=== PATIENT | female | born 1945 | race African-American/Black ===

== ENCOUNTER → 2016-11-06 | Outpatient (CLI) | payer MEDICARE, BC ==
[~2016-11-06] MED LIST: ACET650T89 PO; ALEN70TA5 PO; AMLO10TA2 PO; ATEN50TA PO; CALC625T20 PO; CLON0.2T PO; FERR-26 PO; GLUC100018 PO; IBUP200T58 PO; MULT1TAB52 PO; NAPR220T70 PO; SPIR25TA3 PO
[2016-11-06 09:26] LABS: BASO # 0.1 x10^3/uL (0.0-0.2); BASO % 1 % (0-3); EOS % 2 % (0-3); HEMATOCRIT 37.6 % (36.0-47.0); HEMOGLOBIN 12.7 g/dL (12.0-15.5); LYMPH # 2.5 x10^3/uL (1.0-4.8); LYMPH % 30 % (24-48); MEAN CORPUSCULAR HEMOGLOBIN 32 pg (25-35); MEAN CORPUSCULAR HGB CONC 34 g/dL (31-37); MEAN CORPUSCULAR VOLUME 93 fL (79-100); MONO % 8 % (0-9); NEUT % 59 % (31-73); PLATELET COUNT 210 x10^3/uL (140-400); RED BLOOD COUNT 4.03 x10^6/uL (3.50-5.40); RED CELL DISTRIBUTION WIDTH 13.2 % (11.5-14.5); WHITE BLOOD COUNT 8.4 x10^3/uL (4.0-11.0)
[2016-11-06 09:34] LABS: CALCIUM 9.4 mg/dL (8.5-10.1); CREATININE 0.8 mg/dL (0.6-1.0); GFR 86.1; POTASSIUM 3.9 mmol/L (3.5-5.1)
[2016-11-06 09:41] LABS: PROTHROMBIN TIME PATIENT 12.5 SEC (11.7-14.0)
[2016-11-06 09:55] LABS: BILIRUBIN,URINE NEGATIVE (NEG); GLUCOSE,URINE NEGATIVE (NEG); NITRITE,URINE NEGATIVE (NEG); PROTEIN,URINE NEGATIVE (NEG-TRACE); UROBILINOGEN,URINE 0.2 mg/dL (0.2 mg/dL)
[2016-11-06 10:13] LABS: BACTERIA,URINE 0 /HPF (0-FEW); RBC,URINE 0 /HPF (0-2); SQUAMOUS EPITHELIAL CELL,UR FEW /LPF; WBC,URINE 0 /HPF (0-4)
--- NOTE | 2016-11-06 13:42 | RAD ---
Indication preop. Anticipated knee replacement. PA and lateral views of the chest were obtained. No prior imaging is available. Heart size is normal. Minimally tortuous thoracic aorta is noted. There is no acute parenchymal infiltrate. Significant pleural fluid is not seen. There is no pneumothorax. IMPRESSION: No acute or focal process is seen in the chest
== END | disposition home or self-care (01) ==
LOC: SURGPAT 14:05
PROVIDERS: ATTEND Orthopaedic Surgery
DX: Z01.818 Encounter for other preprocedural examination (principal); I10 Essential (primary) hypertension
CPT/HCPCS: 36415; 71020; 80048; 81001; 82040; 85027; 85610; 85730; 87641

== ENCOUNTER 2016-11-21 08:29 | Inpatient (IN) | payer MEDICARE, BC ==
--- NOTE | 2016-11-20 11:00 | PDOC1 ---
History and Physical Date of Admission Date of Admission DATE: 11/21/16 Identification/Chief Complaint Chief Complaint bilateral knee osteoarthritis pain Problems: Source Source: Chart review History of Present Illness History of Present Illness The patient is a 71 year old female with a history of bilateral primary osteoarthritis who has continued right knee pain. She was last seen in the clinic on 06/26/16 for bilateral knee pain. She received 80mg Depo-Medrol into both knees and states the injection worked really well on her left knee but her right knee is worse. She had a tooth extracted last week however is not on any antibiotics at this time. She states she will wait to get the crown and bridge after the knee surgery. She denies history of diabetes and peripheral neuropathy however does have some numbness to the top of her foot at night only. She does have arthritis in her lower back. She denies history of blood clots. Past Medical History Cardiovascular: HTN Musculoskeletal: Osteoarthritis Past Surgical History Past Surgical History: Breast Biopsy, Other (shoulder mass biopsy) Family History Family History: Cancer, Heart Disease, Hypertension Social History Smoke: No ALCOHOL: none Drugs: None Current Medications Current Medications Active Scripts Active Reported Spironolactone 25 Mg Tablet 25 Mg PO DAILY Alendronate Sodium 70 Mg Tablet 70 Mg PO WEEKLY Ferrous Sulfate 325 Mg Tablet 1 Tab PO DAILY Fiber Tabs (Calcium Polycarbophil) 625 Mg Tablet 625 Mg PO DAILY Multivitamins (Multivitamin) 1 Each Tablet 1 Tab PO DAILY Glucosamine (Glucosamine Sulfate 2KCL) 1,000 Mg Tablet 1,000 Mg PO DAILY Arthritis Pain (Acetaminophen) 650 Mg Tablet.er 650 Mg PO Advil (Ibuprofen) 200 Mg Tablet 200 Mg PO Aleve (Naproxen Sodium) 220 Mg Tablet 220 Mg PO BID Amlodipine Besylate 10 Mg Tablet 10 Mg PO DAILY Clonidine Hcl 0.2 Mg Tablet 1 Tab PO QHS Atenolol 50 Mg Tablet 50 Mg PO BID Allergies Allergies: Coded Allergies: No Known Drug Allergies (Unverified , 11/02/16) Physical Exam General: Alert, Oriented X3, Cooperative, No acute distress HEENT: Atraumatic, EOMI Lungs: Normal air movement Heart: RRR Abdomen: Soft Extremities: No clubbing, No cyanosis, Normal pulses, Other (LEFT KNEE: shows her mildly antalgic gait. There is valgus alignment. No masses. No detectable effusion. Tenderness on the joint lines. Range of motion is 5-115 degrees. There is crepitus with range of motion, and pain at the extremes of motion. The knee is stable to varus and valgus stress without subluxation or laxity. Muscle strength is normal (5/5) for quadriceps and hamstrings, and muscle tone is normal. The skin is normal with no scars, rashes, lesions or ulcers. Light touch sensation is intact. No edema and no varicosities. Dorsalis pedis pulse is intact and capillary refill is normal. RIGHT KNEE: shows her mildly antalgic gait. There is valgus alignment. No masses. No detectable effusion. Tenderness on the joint lines. Range of motion is 5-100 degrees. There is crepitus with range of motion, and pain at the extremes of motion. The knee is stable to varus and valgus stress without subluxation or laxity. Muscle strength is normal (5/5) for quadriceps and hamstrings, and muscle tone is normal. The skin is normal with no scars, rashes, lesions or ulcers. Light touch sensation is intact. Trace edema. Some varicose veins. Dorsalis pedis pulse is intact and capillary refill is normal.) Skin: No rashes, No breakdown, No significant lesion Neuro: Normal speech, Sensation intact Images Images IMAGING REPORT Joint survey, hips knees and ankles Clinical information: Preoperative for total knee arthroplasty Comparison: none Findings Bones: The angle between the right hip-ankle mechanical axis and the femoral shaft is 5. The angle between the left hip-ankle mechanical axis and the femoral shaft is 5 . The mechanical axis crosses lateral to the center of the right knee indicating valgus alignment. The mechanical axis crosses in the center of the left knee indicating proper mechanical alignment. Joints: There is narrowing of the right knee joint laterally. The left knee joint appears normal. The hips and ankles show minimal degenerative changes most prominent in the left hip where there is mild osteoarthritis. Soft tissue: Normal. Impression: Valgus alignment of the right knee. The difference between the mechanical axis and femoral shaft anatomic axis is 5 bilaterally. VTE Prophylaxis Ordered VTE Prophylaxis Devices: Yes VTE Pharmacological Prophylaxi: Yes Assessment/Plan Assessment/Plan Bilateral knee osteoarthritis. The patient and Dr. Rocha discussed the potential risks of infection, neurovascular injury, bleeding, blood clots, need for revision surgery, or other potential surgical or anesthetic complications. We can just inject her left knee today. We can also inject the left knee at the time of surgery. We will proceed with a right total knee arthroplasty on November 21, 2016. She had some dental work done, but is getting that cleared up before surgery. BEAR MADERA Nov 20, 2016 11:00
[2016-11-21] VITALS (8 sets, daily range): BP systolic 118–129; BP diastolic 70–79
[~2016-11-21] VITALS: Ht 171.4 cm; Wt 100.2 kg
[~2016-11-21 08:29] MED LIST changes: +CELECOXIB 200 MG CAPSULE. PO PRN; +HYDROcodone/APAP 7.5/325MG 1 TAB TABLET PO PRN; +HYDROmorphone 2 MG/ML VIAL IV PRN; +IV RINGERS,LACTATED 1000ML 1,000 ML IV SCH; +LIDOCAINE 1% 1 ML SYRINGE. ID PRN; +MORPHINE SULFATE 2 MG/ML DISP.SYRIN. IV PRN; +MORPHINE SULFATE 5 MG, KETOROLAC TROMETHAMINE 30 MG, ROPIVacaine 0.5% PF 60 ML, EPINEPH... INT ART ONE; +ONDANSETRON PF 4 MG/2 ML VIAL. IV PRN; +PROCHLORPERAZINE 10 MG/2 ML VIAL. IV PRN; +TRANEXAMIC ACID 1,000 MG in IV NS 50ML -- 1ST BAG INJ ONE; +TRANEXAMIC ACID 1,000 MG in IV NS 50ML -- 2ND BAG INJ ONE; +fentaNYL PF VIAL 100 MCG/2 ML VIAL IV PRN
[2016-11-21] MEDS ORDERED: TOBRAMYCIN POWDER 1.2 GM VIAL. ONE (08:45)
[2016-11-21] MEDS ORDERED: VANCOMYCIN 1 GM VIAL. ONE (08:45)
[2016-11-21] MEDS ORDERED: MELO15TA23 PO (09:24)
[2016-11-21] MEDS ORDERED: methylPREDNISolone ACETATE 80 MG/ML VIAL. ONE (09:42)
[2016-11-21] MEDS ORDERED: BUPIVACAINE MPF 0.25% 30 ML VIAL. ONE (09:42)
[2016-11-21] MEDS ORDERED: ePHEDrine PF IN SALINE 50 MG/5 ML DISP.SYRIN IV ONE (10:54)
[2016-11-21] MEDS ORDERED: fentaNYL PF VIAL 100 MCG/2 ML VIAL ONE ×2 (11:10→11:24)
[2016-11-21] MEDS ORDERED: SEVOFLURANE > 120 MINUTES. IH ONE (11:21)
[2016-11-21] MEDS ORDERED: LIDOCAINE 2% TOPICAL JELLY 5GM TUBE. TP ONE (11:22)
[2016-11-21] MEDS ORDERED: PROPOFOL 20 ML IV ONE (11:22)
[2016-11-21] MEDS ORDERED: DEXAMETHASONE SOD PHOS 20 MG/5 ML VIAL. ONE (11:22)
[2016-11-21] MEDS ORDERED: ONDANSETRON PF 4 MG/2 ML VIAL. ONE (11:22)
[2016-11-21] MEDS: fentaNYL PF VIAL 100 MCG/2 ML VIAL IV PRN ×3 (13:13→13:41)
[2016-11-21] MEDS ORDERED: PROCHLORPERAZINE 10 MG/2 ML VIAL. IV PRN (13:15)
[2016-11-21] MEDS ORDERED: CALCIUM CARBONATE 500 MG TAB.CHEW PO PRN (13:15)
[2016-11-21] MEDS ORDERED: traMADol 50 MG TABLET PO PRN ×2 (13:15)
[2016-11-21] MEDS ORDERED: oxyCODONE/APAP 5/325 1 TAB TABLET PO PRN (13:15)
[2016-11-21] MEDS ORDERED: MORPHINE SULFATE 10 MG/ML VIAL. IV PRN (13:15)
[2016-11-21] MEDS ORDERED: HYDROcodone/APAP 10/325 1 TAB TABLET PO PRN (13:15)
[2016-11-21] MEDS ORDERED: MORPHINE SULFATE 2 MG/ML DISP.SYRIN. IV PRN (13:15)
[2016-11-21] MEDS ORDERED: HYDROcodone/APAP 7.5/325MG 1 TAB TABLET PO PRN (13:15)
[2016-11-21] MEDS ORDERED: ACETAMINOPHEN 325 MG TABLET. PO PRN (13:15)
[2016-11-21] MEDS ORDERED: 0.9 % SODIUM CHLORIDE 10 ML DISP.SYRIN. IV PRN (13:15)
[2016-11-21] MEDS ORDERED: diphenhydrAMINE 50 MG/ML VIAL IV PRN (13:15)
[2016-11-21] MEDS ORDERED: ZOLPIDEM 5 MG TABLET. PO PRN (13:15)
[2016-11-21] MEDS ORDERED: DEXTROSE 50% 25 GM / 50ML DISP.SYRIN. IV PRN (13:15)
[2016-11-21] MEDS ORDERED: METOCLOPRAMIDE HCL 10 MG/2 ML VIAL. IV PRN (13:15)
[2016-11-21] MEDS ORDERED: MORPHINE SULFATE 4 MG/ML DISP.SYRIN. IV PRN ×2 (13:15)
[2016-11-21] MEDS ORDERED: fentaNYL PF VIAL 100 MCG/2 ML VIAL IV PRN ×2 (13:15)
[2016-11-21] MEDS ORDERED: PROCHLORPERAZINE 5 MG TABLET. PO PRN (13:15)
--- NOTE | 2016-11-21 13:56 | RAD ---
Right knee, 2 views, 11/21/2016: History: Postop knee replacement A total knee prosthesis is in place in satisfactory position. A surgical drain overlies the operative site anteriorly. There is no evidence of a retained surgical instrument, needle or radiopaque sponge. IMPRESSION: No significant postoperative abnormality is detected.
[2016-11-21] MEDS: SPIRONOLACTONE 25 MG TABLET PO SCH (14:00)
[2016-11-21] MEDS: CALCIUM POLYCARBOPHIL 625 MG TABLET PO SCH (14:00)
[2016-11-21] MEDS: SENNOSIDES/DOCUSATE 8.6/50MG TABLET. PO SCH (14:00)
[2016-11-21] MEDS: MULTIVITAMIN with MINERAL TABLET. PO SCH (14:00)
[2016-11-21] MEDS: amLODIPine BESYLATE 10 MG TABLET PO SCH (14:00)
[2016-11-21] MEDS: MELOXICAM 7.5 MG TABLET PO SCH (14:00)
--- NOTE | 2016-11-21 15:05 | PDOC4 ---
Operative Note Operative Note Date of Procedure: November 21, 2016 Pre-Op Diagnosis: Osteoarthritis right knee (and left knee) Post-Op Diagnosis: Osteoarthritis right knee (and left knee) Procedure: right total knee arthroplasty (and left knee corticosteroid injection) Surgeon: Jose Enrique Rocha MD Hardboard Grinder: Shaylee Foster PA-C Anesthesia: General EBL: 100 mL Specimens Obtained: right knee bone and soft tissue Complications: none Implant Company: [employer] Drains: Hemovac plus pain catheter Tourniquet time: 64 Minutes Tourniquet Pressure: 350 mm Hg Indications for Procedure: Arthritis pain unrelieved by nonoperative management. Findings: Severe osteoarthritis with bone on bone contact laterally and at the patellofemoral compartment. Implants used: Size 5 right bicruciate stabilized Journey II BCS cobalt chrome femoral component, size 5 right Journey nonporous tibial baseplate, size 5-6 9 mm right Journey II BCS XLPE articular insert, 35 mm oval Abby II resurfacing patellar component Procedure in Detail: The patient was identified in the preoperative holding area, and the correct right extremity was marked by me. The patient was taken to the operating room where the patient was anesthetized by the Department of Anesthesia. Preoperative antibiotics were given intravenously. Tranexamic acid 1 g was given intravenously for intraoperative hemostasis. A "time-out" procedure was performed. The patient was positioned supine on the operative table with a tourniquet on the upper right thigh. The left knee was prepared for injection with topical betadine, and then the knee was injected with 80 mg of DepoMedrol and 1 mL of 0.25% bupivacaine, using sterile technique. A Band-Aid was placed. The right lower limb was thoroughly prepped and draped in sterile fashion. An impervious stockinet and adhesive drape were used such that the skin was entirely covered. An Gonzalez leg galaviz was used. The operating team wore personal exhaust-ventilated hoods. The tourniquet was inflated to 350 mm Hg. A midline skin incision was made with a scalpel using the patella and tibial tubercle as landmarks. Electrocautery was used for hemostasis. My human services assistant used rake retractors. A medial parapatellar arthrotomy incision was used with extension into the distal quadriceps tendon. The patella was retracted laterally and Hohmann retractors were now used by my human services assistant. Excess synovium, the menisci, and the cruciate ligaments were resected sharply. The patella was assessed and excess synovium and osteophytes around the patellar articulation were removed. The patella was measured with a caliper, cut freehand with a saw using caliper measurements, sized, and then drilled for an oval three-pegged patella component. Periarticular injection was used in the suprapatellar pouch and distal quadriceps muscle. Whitesides's line was assessed on the femur. An intra-medullary 5 degree cutting guide was pinned to the femur, and a distal femoral cut was made with an oscillating saw. An additional 4 mm resection was used due to the deep femoral sulcus, and deficient femoral condyle.My human services assistant held Hohmann retractors and an [facility] retractor to protect the medial and lateral collateral ligaments, the patellar tendon, the skin and the other soft tissues. An anterior referencing guide was applied with external rotation of 6 to match Whitesides line. A 5-in-1 Journey II cutting guide was then applied and pinned to the femur. The posterior, anterior, and all chamfer cuts were made with the oscillating saw. An extramedullary guide was pinned to the tibia and rotational alignment and the planned resection thickness assessed. An external alignment abby was used to verify the planned cut in the varus-valgus plane and regarding posterior slope referencing the tibial tubercle, the tibial shaft, the ankle joint, and the second metatarsal. The upper tibia was cut made with an oscillating saw. My human services assistant held Hohmann retractors and a posterior cruciate ligament retractor to protect the medial and lateral collateral ligaments, the patellar tendon, the skin, the peroneal nerve and the other soft tissues. The upper tibia was sized with a trial baseplate. The posterior compartment was cleared of osteophytes and loose bodies, and posterior capsule released. Donna-articular injection was used in the posterior compartment. The box cut for a posterior stabilized component was made. A preliminary reduction was performed with a trial femur, trial tibial baseplate and trial polyethylene. Soft-tissue balancing was now performed, and extension and rotation of the alignments was checked using a guide abby in the tibial trial and a guide pin in the femur. No additional releases were required. The stability was assessed using different thicknesses of tibial articular surface to find satisfactory stability and good range of motion. The rotation of the tibial component was marked on the upper tibia. Final trial reduction was now performed verifying patella tracking and tibiofemoral stability and alignment. The tibia preparation was completed with a drill, saw, and fin punch at the previously noted rotation. The final implants were verified and opened. Outer gloves were changed by the operating team. The bone cuts were washed thoroughly with the [employer] InterPulse device and dried. Two packages of Palacos bone cement were mixed in powdered form with 1 gm of Vancomycin and 1.2 g tobramycin, then vacuum-mixed with the monomer, and placed into a cement gun. The cut surfaces of the bone were thoroughly dried with Lya-tip suction and with laparotomy sponges for cement interdigitation. The final components were cemented into place. The knee was kept at full extension while the cement hardened, and excess cement was removed. Tranexamic acid 1 g was redosed intravenously for additional intraoperative hemostasis. A final periarticular injection was used for pain relief. The tourniquet was released, and electrocautery was used for hemostasis. A final check of assec-oh-kcqhod and stability was made, and the polyethylene implant final size was chosen. The polyethylene implant was secured to the tibial baseplate, and the knee was reduced a final time. Thorough irrigation was used. Hemovac and pain catheter were used.The arthrotomy was closed with interrupted [id number] #1 PDS suture. The arthrotomy incision was then run with #1 STRATAFIX Symmetric PDS Plus Knotless suture. The subcutaneous tissues were closed with #2-0 Vicryl by my human services assistant. The skin was reapproximated with STRATAFIX Spiral MONOCRYL Plus Knotless suture by my human services assistant. The skin incision was then covered and reinforced with Dermabond Prineo mesh skin closure dressing. A bulky sterile gauze dressing was applied. Needle and sponge counts were correct. JOSE ENRIQUE ROCHA MD Nov 21, 2016 15:05
[2016-11-21] MEDS: oxyCODONE/APAP 7.5/325 1 TAB TABLET PO PRN ×2 (16:22→22:10)
[2016-11-21] MEDS: FERROUS SULFATE 325 MG TABLET. PO SCH (17:21)
[2016-11-21] MEDS: ASPIRIN ENTERIC COATED 325 MG TABLET.DR. PO SCH (20:34)
[2016-11-21] MEDS: ATENOLOL 50 MG TABLET. PO SCH (20:34)
[2016-11-21] MEDS: cloNIDine HCL 0.2 MG TABLET PO SCH (21:00)
[2016-11-21] MEDS: IV DEXTROSE 5 %-0.45 % NACL 1,000 ML IV SCH ×2 (22:09→23:05)
[2016-11-22 03:54] VITALS: BP 119/68
[2016-11-22] MEDS ORDERED: MAGNESIUM HYDROXIDE 2,400 MG/30 ML ORAL.SUSP. PO PRN (06:00)
[2016-11-22 06:03] LABS: HEMATOCRIT 28.7 % (36.0-47.0); HEMOGLOBIN 9.4 g/dL (12.0-15.5)
[2016-11-22 06:26] VITALS: BP 122/74
[2016-11-22] MEDS: SENNOSIDES/DOCUSATE 8.6/50MG TABLET. PO SCH (08:06)
[2016-11-22] MEDS: oxyCODONE/APAP 7.5/325 1 TAB TABLET PO PRN ×4 (08:06→21:16)
[2016-11-22] MEDS: FERROUS SULFATE 325 MG TABLET. PO SCH ×2 (08:06→16:53)
[2016-11-22] MEDS: MELOXICAM 7.5 MG TABLET PO SCH (08:07)
[2016-11-22] MEDS: CALCIUM POLYCARBOPHIL 625 MG TABLET PO SCH (08:07)
[2016-11-22] MEDS: ASPIRIN ENTERIC COATED 325 MG TABLET.DR. PO SCH ×2 (08:07→21:17)
[2016-11-22] MEDS: MULTIVITAMIN with MINERAL TABLET. PO SCH (08:07)
[2016-11-22] MEDS: SPIRONOLACTONE 25 MG TABLET PO SCH (09:00)
[2016-11-22] MEDS: ATENOLOL 50 MG TABLET. PO SCH ×2 (09:00→21:16)
[2016-11-22] MEDS: amLODIPine BESYLATE 10 MG TABLET PO SCH (09:00)
[2016-11-22] MEDS: IV DEXTROSE 5 %-0.45 % NACL 1,000 ML IV SCH ×2 (09:05→19:05)
--- NOTE | 2016-11-22 12:10 | PDOC ---
PROGRESS NOTES Subjective Subjective No complaints. Doing well. Objective Vital Signs Vital Signs Date Time Temp Pulse Resp B/P (MAP) Pulse Ox O2 Delivery O2 Flow Rate FiO2 11/22/16 08:06 Room Air 11/22/16 06:26 98.2 67 18 122/74 (90) 98 98.2 11/21/16 16:30 2.0 Physical Exam Dressing dry. Pain catheter and Hemovac in place. Good dorsiflexion and plantarflexion of the foot with no evidence of neurovascular injury or DVT. Calves are soft and non-tender. Negative Homans. Peripheral pulses and light touch sensation intact. Labs Laboratory Tests Test 11/21/16 09:25 11/22/16 05:15 Erythrocyte Sedimentation Rate 24 (0-25) Hemoglobin 9.4 g/dL (12.0-15.5) Hematocrit 28.7 % (36.0-47.0) Mean Corpuscular Hemoglobin Concent 33 g/dL (31-37) Laboratory Tests Test 11/22/16 05:15 Hemoglobin 9.4 g/dL (12.0-15.5) Hematocrit 28.7 % (36.0-47.0) Mean Corpuscular Hemoglobin Concent 33 g/dL (31-37) Imaging Postoperative x-rays reviewed by me, showing satisfactory total knee replacement , with no apparent complications. Assessment Assessment POD #1 TKA Problems: Plan Plan of Care Continue POC including DVT prophylaxis and physical therapy. BEAR MADERA Nov 22, 2016 12:10
[2016-11-22 12:41] VITALS: BP 117/74
[2016-11-22] MEDS ORDERED: BISACODYL 10 MG SUPP.RECT. PR PRN (16:00)
[2016-11-22 18:00] VITALS: BP 130/78
[2016-11-22] MEDS: cloNIDine HCL 0.2 MG TABLET PO SCH (21:00)
[2016-11-22 23:00] VITALS: BP 119/70
[2016-11-23] MEDS: oxyCODONE/APAP 7.5/325 1 TAB TABLET PO PRN ×5 (04:52→21:13)
[2016-11-23 05:14] LABS: HEMOGLOBIN 7.9 g/dL (12.0-15.5)
[2016-11-23 06:15] VITALS: BP 122/69
[2016-11-23] MEDS: ASPIRIN ENTERIC COATED 325 MG TABLET.DR. PO SCH ×2 (08:24→21:12)
[2016-11-23] MEDS: CALCIUM POLYCARBOPHIL 625 MG TABLET PO SCH (08:24)
[2016-11-23] MEDS: SENNOSIDES/DOCUSATE 8.6/50MG TABLET. PO SCH (08:24)
[2016-11-23] MEDS: FERROUS SULFATE 325 MG TABLET. PO SCH ×2 (08:25→17:00)
[2016-11-23] MEDS: MULTIVITAMIN with MINERAL TABLET. PO SCH (08:25)
[2016-11-23] MEDS: MELOXICAM 7.5 MG TABLET PO SCH (08:25)
[2016-11-23] MEDS: ATENOLOL 50 MG TABLET. PO SCH ×2 (08:32→21:12)
[2016-11-23 11:15] VITALS: BP 121/76
[2016-11-23] MEDS: SPIRONOLACTONE 25 MG TABLET PO SCH (11:51)
[2016-11-23] MEDS: amLODIPine BESYLATE 10 MG TABLET PO SCH (11:52)
--- NOTE | 2016-11-23 13:04 | PDOC ---
PROGRESS NOTES Subjective Subjective Doing well. Only reports mild pain increase from yesterday. Objective Vital Signs Vital Signs Date Time Temp Pulse Resp B/P (MAP) Pulse Ox O2 Delivery O2 Flow Rate FiO2 11/23/16 11:52 102 121/76 11/23/16 11:18 Room Air 11/23/16 11:15 99.1 18 95 99.1 11/22/16 20:00 2.0 Physical Exam Expected swelling. Pain catheter and drain have been removed. Incison with spotty drainage only onto Prineo. Calf soft and nontender. Negative homans sign. Good AROM ankle. Peripheral pulses and light touch sensation intact. Labs Laboratory Tests Test 11/22/16 05:15 11/23/16 04:30 Hemoglobin 9.4 g/dL (12.0-15.5) 7.9 g/dL (12.0-15.5) Hematocrit 28.7 % (36.0-47.0) 24.0 % (36.0-47.0) Mean Corpuscular Hemoglobin Concent 33 g/dL (31-37) 33 g/dL (31-37) Laboratory Tests Test 11/23/16 04:30 Hemoglobin 7.9 g/dL (12.0-15.5) Hematocrit 24.0 % (36.0-47.0) Mean Corpuscular Hemoglobin Concent 33 g/dL (31-37) Imaging X-rays independently reviewed by me and show satisfactory TKA alignment and no apparent complications. Assessment Assessment POD 2 TKA. Acute blood loss anemia, without apparent symptoms. Minimal tachycardia 102. Problems: Plan Plan of Care Continue DVT prophylaxis and physical therapy. No transfusion planned at this time. Will monitor for symptoms of anemia. Planned discharge tomorrow. Office F/U in 10-14 days. JOSE ENRIQUE SIBLEY MD Nov 23, 2016 13:04
--- NOTE | 2016-11-23 16:02 | PATHOLOGY ---
PATHOLOGY REPORT * * * * * * * * FINAL DIAGNOSIS: Segments of bone and soft tissue, right total knee arthroplasty: - Advanced degenerative arthritis. Comment: There is no evidence of an acute inflammatory process or malignancy.(JPM:; d/t: 11/23/16) REPORT ELECTRONICALLY SIGNED BY: Samuel Hoffman M.D. DATE/TIME: 11/23/2016 16:02 * * * * * * * * GROSS PATHOLOGY: Received in formalin labeled "Sindy Upton, right knee tissue," are multiple segments of bone, including tibial plateau, measuring 9.5 x 8.7 x 2.5 cm in aggregate dimensions admixed with soft tissue; meniscus is present. The specimen shows focal eburnation of the articular surfaces. Boom Crane Operator sections of bone and soft tissue are submitted in cassette A1, following decalcification. (CAA; 11/22/2016) INITIAL CPT CODE(S): A; 89433, 80367 Professional services performed [place] [facility] [address] Technical services performed by [facility] at [address] [place] [address]. SPECIMEN(S) RECEIVED: A.Right knee tissue CLINICAL HISTORY: Right knee OA PATIENT: SINDY UPTON /AGE: 9 1945 (Age: 71) PATIENT #: [id number] ALT CASE #: SPECIMEN COLLECTION DATE: 11/21/2016 SPECIMEN RECEIVED DATE: 11/21/2016 [facility] - [address] [place] [address] - PHONE: [phone] * * * END OF REPORT * * *
[2016-11-23 17:26] VITALS: BP 123/69
[2016-11-23] MEDS: cloNIDine HCL 0.2 MG TABLET PO SCH (21:13)
[2016-11-24] MEDS: oxyCODONE/APAP 7.5/325 1 TAB TABLET PO PRN ×3 (05:24→12:21)
[2016-11-24 05:40] LABS: HEMATOCRIT 22.9 % (36.0-47.0); HEMOGLOBIN 7.4 g/dL (12.0-15.5)
[2016-11-24 06:00] VITALS: BP 113/73
[2016-11-24] MEDS: CALCIUM POLYCARBOPHIL 625 MG TABLET PO SCH (07:59)
[2016-11-24] MEDS: MULTIVITAMIN with MINERAL TABLET. PO SCH (08:00)
[2016-11-24] MEDS: ASPIRIN ENTERIC COATED 325 MG TABLET.DR. PO SCH (08:00)
[2016-11-24] MEDS: SENNOSIDES/DOCUSATE 8.6/50MG TABLET. PO SCH (08:00)
[2016-11-24] MEDS: FERROUS SULFATE 325 MG TABLET. PO SCH (08:00)
[2016-11-24] MEDS: MELOXICAM 7.5 MG TABLET PO SCH (08:00)
[2016-11-24] MEDS: ATENOLOL 50 MG TABLET. PO SCH (08:01)
[2016-11-24] MEDS: amLODIPine BESYLATE 10 MG TABLET PO SCH (08:05)
[2016-11-24] MEDS: SPIRONOLACTONE 25 MG TABLET PO SCH (08:06)
[2016-11-24 10:10] VITALS: BP 125/72
[2016-11-24 10:18] LABS: BASO # 0.1 x10^3/uL (0.0-0.2); BASO % 1 % (0-3); EOS % 1 % (0-3); HEMATOCRIT 21.9 % (36.0-47.0); HEMOGLOBIN 7.5 g/dL (12.0-15.5); LYMPH # 2.7 x10^3/uL (1.0-4.8); LYMPH % 22 % (24-48); MEAN CORPUSCULAR HEMOGLOBIN 32 pg (25-35); MEAN CORPUSCULAR HGB CONC 34 g/dL (31-37); MEAN CORPUSCULAR VOLUME 93 fL (79-100); MONO % 11 % (0-9); NEUT % 66 % (31-73); PLATELET COUNT 172 x10^3/uL (140-400); RED BLOOD COUNT 2.37 x10^6/uL (3.50-5.40); RED CELL DISTRIBUTION WIDTH 13.4 % (11.5-14.5); WHITE BLOOD COUNT 12.4 x10^3/uL (4.0-11.0)
--- NOTE | 2016-11-24 13:41 | PDOC ---
PROGRESS NOTES Subjective Subjective Doing well. Planning for discharge later today after PT. Objective Vital Signs Vital Signs Date Time Temp Pulse Resp B/P (MAP) Pulse Ox O2 Delivery O2 Flow Rate FiO2 11/24/16 13:21 18 Room Air 11/24/16 10:10 99.0 93 125/72 (89) 99.0 11/24/16 06:00 93 11/22/16 20:00 2.0 Physical Exam Expected swelling. Prineo dressing intact and dry. There are two small, intact fracture blisters. Ecchymosis medially. Calf soft and nontender. Negative Bryant s. Good AROM ankle. Peripheral pulses and light touch sensation intact. Labs Laboratory Tests Test 11/23/16 04:30 11/24/16 05:15 Hemoglobin 7.9 g/dL (12.0-15.5) 7.5 g/dL (12.0-15.5) Hematocrit 24.0 % (36.0-47.0) 21.9 % (36.0-47.0) Mean Corpuscular Hemoglobin Concent 33 g/dL (31-37) 34 g/dL (31-37) White Blood Count 12.4 x10^3/uL (4.0-11.0) Red Blood Count 2.37 x10^6/uL (3.50-5.40) Mean Corpuscular Volume 93 fL (79-100) Mean Corpuscular Hemoglobin 32 pg (25-35) Red Cell Distribution Width 13.4 % (11.5-14.5) Platelet Count 172 x10^3/uL (140-400) Neutrophils (%) (Auto) 66 % (31-73) Lymphocytes (%) (Auto) 22 % (24-48) Monocytes (%) (Auto) 11 % (0-9) Eosinophils (%) (Auto) 1 % (0-3) Basophils (%) (Auto) 1 % (0-3) Neutrophils # (Auto) 8.2 x10^3uL (1.8-7.7) Lymphocytes # (Auto) 2.7 x10^3/uL (1.0-4.8) Monocytes # (Auto) 1.4 x10^3/uL (0.0-1.1) Eosinophils # (Auto) 0.1 x10^3/uL (0.0-0.7) Basophils # (Auto) 0.1 x10^3/uL (0.0-0.2) Laboratory Tests Test 11/24/16 05:15 White Blood Count 12.4 x10^3/uL (4.0-11.0) Red Blood Count 2.37 x10^6/uL (3.50-5.40) Hemoglobin 7.5 g/dL (12.0-15.5) Hematocrit 21.9 % (36.0-47.0) Mean Corpuscular Volume 93 fL (79-100) Mean Corpuscular Hemoglobin 32 pg (25-35) Mean Corpuscular Hemoglobin Concent 34 g/dL (31-37) Red Cell Distribution Width 13.4 % (11.5-14.5) Platelet Count 172 x10^3/uL (140-400) Neutrophils (%) (Auto) 66 % (31-73) Lymphocytes (%) (Auto) 22 % (24-48) Monocytes (%) (Auto) 11 % (0-9) Eosinophils (%) (Auto) 1 % (0-3) Basophils (%) (Auto) 1 % (0-3) Neutrophils # (Auto) 8.2 x10^3uL (1.8-7.7) Lymphocytes # (Auto) 2.7 x10^3/uL (1.0-4.8) Monocytes # (Auto) 1.4 x10^3/uL (0.0-1.1) Eosinophils # (Auto) 0.1 x10^3/uL (0.0-0.7) Basophils # (Auto) 0.1 x10^3/uL (0.0-0.2) Assessment Assessment POD 3 TKA Problems: Plan Plan of Care Discharge later today, to home. Continue DVT prophylaxis and physical therapy. F/U 10-14 days. BEAR MADERA Nov 24, 2016 13:41
--- NOTE | 2016-11-24 13:43 | PDOC3 ---
Discharge Summary Visit Information Date of Admission: Nov 21, 2016 Date of Discharge: Nov 24, 2016 Admitting Diagnosis: right knee osteoarthritis pain (and left knee pain) Brief Hospital Course Allergies Allergies Coded Allergies Type Severity Reaction Last Updated Verified No Known Drug Allergies 11/21/16 No Vital Signs Vital Signs Date Time Temp Pulse Resp B/P (MAP) Pulse Ox O2 Delivery O2 Flow Rate FiO2 11/24/16 13:21 18 Room Air 11/24/16 10:10 99.0 93 125/72 (89) 99.0 11/24/16 06:00 93 11/22/16 20:00 2.0 Lab Results Laboratory Tests Test 11/23/16 04:30 11/24/16 05:15 Hemoglobin 7.9 g/dL (12.0-15.5) 7.5 g/dL (12.0-15.5) Hematocrit 24.0 % (36.0-47.0) 21.9 % (36.0-47.0) Mean Corpuscular Hemoglobin Concent 33 g/dL (31-37) 34 g/dL (31-37) White Blood Count 12.4 x10^3/uL (4.0-11.0) Red Blood Count 2.37 x10^6/uL (3.50-5.40) Mean Corpuscular Volume 93 fL (79-100) Mean Corpuscular Hemoglobin 32 pg (25-35) Red Cell Distribution Width 13.4 % (11.5-14.5) Platelet Count 172 x10^3/uL (140-400) Neutrophils (%) (Auto) 66 % (31-73) Lymphocytes (%) (Auto) 22 % (24-48) Monocytes (%) (Auto) 11 % (0-9) Eosinophils (%) (Auto) 1 % (0-3) Basophils (%) (Auto) 1 % (0-3) Neutrophils # (Auto) 8.2 x10^3uL (1.8-7.7) Lymphocytes # (Auto) 2.7 x10^3/uL (1.0-4.8) Monocytes # (Auto) 1.4 x10^3/uL (0.0-1.1) Eosinophils # (Auto) 0.1 x10^3/uL (0.0-0.7) Basophils # (Auto) 0.1 x10^3/uL (0.0-0.2) Laboratory Tests Test 11/24/16 05:15 White Blood Count 12.4 x10^3/uL (4.0-11.0) Red Blood Count 2.37 x10^6/uL (3.50-5.40) Hemoglobin 7.5 g/dL (12.0-15.5) Hematocrit 21.9 % (36.0-47.0) Mean Corpuscular Volume 93 fL (79-100) Mean Corpuscular Hemoglobin 32 pg (25-35) Mean Corpuscular Hemoglobin Concent 34 g/dL (31-37) Red Cell Distribution Width 13.4 % (11.5-14.5) Platelet Count 172 x10^3/uL (140-400) Neutrophils (%) (Auto) 66 % (31-73) Lymphocytes (%) (Auto) 22 % (24-48) Monocytes (%) (Auto) 11 % (0-9) Eosinophils (%) (Auto) 1 % (0-3) Basophils (%) (Auto) 1 % (0-3) Neutrophils # (Auto) 8.2 x10^3uL (1.8-7.7) Lymphocytes # (Auto) 2.7 x10^3/uL (1.0-4.8) Monocytes # (Auto) 1.4 x10^3/uL (0.0-1.1) Eosinophils # (Auto) 0.1 x10^3/uL (0.0-0.7) Basophils # (Auto) 0.1 x10^3/uL (0.0-0.2) Brief Hospital Course 71 year old female who presented with bilateral knee osteoarthritis, for elective right total knee arthroplasty and left knee cortisone injection. The patient underwent right total knee arthroplasty and left knee cortisone injection under general anesthesia the day of admission. Perioperative antibiotics and DVT prophylaxis were used. Postoperatively physical therapy and case management were consulted. The patient progressed and is stable for discharge. Discharge Information Condition at Discharge: Stable Follow Up: Weeks (2) Disposition/Orders: D/C to Home w/ HH Scheduled Alendronate Sodium (Alendronate Sodium), 70 MG PO WEEKLY, (Reported) Amlodipine Besylate (Amlodipine Besylate), 10 MG PO DAILY, (Reported) Atenolol (Atenolol), 50 MG PO BID, (Reported) Calcium Polycarbophil (Fiber Tabs), 625 MG PO DAILY, (Reported) Clonidine Hcl (Clonidine Hcl), 1 TAB PO QHS, (Reported) Ferrous Sulfate (Ferrous Sulfate), 1 TAB PO DAILY, (Reported) Glucosamine Sulfate 2KCL (Glucosamine), 1,000 MG PO DAILY, (Reported) Meloxicam (Meloxicam), 15 MG PO 1X, (Reported) Multivitamin (Multivitamins), 1 TAB PO DAILY, (Reported) Naproxen Sodium (Aleve), 220 MG PO BID, (Reported) Spironolactone (Spironolactone), 25 MG PO DAILY, (Reported) Miscellaneous Medications Acetaminophen (Arthritis Pain), 650 MG PO, (Reported) Ibuprofen (Advil), 200 MG PO, (Reported) Patient Instructions Patient Instructions Patient Instructions Continue to WBAT with walker. Keep dressing dry and intact. F/U with [facility] in 10-14 days. Call for appointment. Physical therapy for TKA Continue DVT prophylaxis with aspirin 325mg twice daily. BEAR MADERA Nov 24, 2016 13:43
[2016-11-24] MEDS ORDERED: ASPI325T8 PO (14:10)
[2016-11-28] MEDS ORDERED: NON FORMULARY ITEM (Alendronate Sodium 70 MG) PO SCH (09:00)
== END 2016-11-24 15:10 | disposition home health service (06) | DRG 470 ==
LOC: OPSVCIP 08:29 → 4 SOUTHEST 14:31
PROVIDERS: ADMIT Orthopaedic Surgery; ATTEND Orthopaedic Surgery
PROC: 3E0U33Z Introduction of Anti-inflammatory into Joints, Percutaneous Approach (ICD-10-PCS; 2016-11-21)
PROC: 3E0U3BZ Introduction of Anesthetic Agent into Joints, Percutaneous Approach (ICD-10-PCS; 2016-11-21)
PROC: 0SRC0J9 Replacement of Right Knee Joint with Synthetic Substitute, Cemented, Open Approach (ICD-10-PCS; principal; 2016-11-21 10:00)
DX: M17.0 Bilateral primary osteoarthritis of knee (principal); D62 Acute posthemorrhagic anemia; I10 Essential (primary) hypertension; Z82.49 Family history of ischemic heart disease and other diseases of the circulatory system; Z80.9 Family history of malignant neoplasm, unspecified
CPT/HCPCS: 36415; 73560; 85014; 85018; 85027; 85651; 86850; 86900; 86901; C1713; J0171; J0690; J0780; J1040; J1100; J1885; J2270; J2405; J2704; J2795; J3010; J3260; J3370; J3490; J7030; J7120; 97116; 97150; 97535; C1769

== ENCOUNTER → 2017-11-19 | Outpatient (CLI) | payer MEDICARE, BC ==
[2017-11-19 11:14] LABS: ADD MAN DIFF? NO
[2017-11-19 11:20] LABS: BASO # 0.1 x10^3/uL (0.0-0.2); BASO % 1 % (0-3); EOS # 0.1 x10^3/uL (0.0-0.7); EOS % 2 % (0-3); HEMATOCRIT 36.7 % (36.0-47.0); HEMOGLOBIN 12.3 g/dL (12.0-15.5); LYMPH # 2.3 x10^3/uL (1.0-4.8); LYMPH % 31 % (24-48); MEAN CORPUSCULAR HEMOGLOBIN 32 pg (25-35); MEAN CORPUSCULAR HGB CONC 34 g/dL (31-37); MEAN CORPUSCULAR VOLUME 96 fL (79-100); MONO # 0.8 x10^3/uL (0.0-1.1); MONO % 11 % (0-9); NEUT # 4.1 x10^3uL (1.8-7.7); NEUT % 55 % (31-73); PLATELET COUNT 211 x10^3/uL (140-400); RED BLOOD COUNT 3.81 x10^6/uL (3.50-5.40); RED CELL DISTRIBUTION WIDTH 14.2 % (11.5-14.5); WHITE BLOOD COUNT 7.4 x10^3/uL (4.0-11.0)
[2017-11-19 11:30] LABS: PARTIAL THROMBOPLASTIN TIME 29 SEC (24-38); PROTHROMBIN TIME PATIENT 12.6 SEC (11.7-14.0)
[2017-11-19 11:44] LABS: ALBUMIN 4.3 g/dL (3.4-5.0); ANION GAP 10 (6-14); BLOOD UREA NITROGEN 32 mg/dL (7-20); CALCIUM 9.5 mg/dL (8.5-10.1); CARBON DIOXIDE 26 mmol/L (21-32); CHLORIDE 102 mmol/L (98-107); CREATININE 0.8 mg/dL (0.6-1.0); GFR 85.8; GLUCOSE 122 mg/dL (70-99); POTASSIUM 4.2 mmol/L (3.5-5.1); SODIUM 138 mmol/L (136-145)
[2017-11-19 12:09] LABS: BILIRUBIN,URINE NEGATIVE (NEG); CLARITY,URINE CLEAR; COLOR,URINE YELLOW; GLUCOSE,URINE NEGATIVE (NEG); NITRITE,URINE NEGATIVE (NEG); PH,URINE 6.5; PROTEIN,URINE NEGATIVE (NEG-TRACE); UROBILINOGEN,URINE 0.2 mg/dL (0.2 mg/dL)
[2017-11-19 12:25] LABS: BACTERIA,URINE 0 /HPF (0-FEW); RBC,URINE 0 /HPF (0-2); SQUAMOUS EPITHELIAL CELL,UR FEW /LPF; WBC,URINE 0 /HPF (0-4)
[2017-11-19 12:26] LABS: SEDIMENTATION RATE 23 (0-25)
[2017-11-19 23:12] LABS: MRSA BY PCR Negative (Negative)
== END | disposition home or self-care (01) ==
LOC: SURGPAT 10:43
DX: Z01.818 Encounter for other preprocedural examination (principal); R79.89 Other specified abnormal findings of blood chemistry; Z79.01 Long term (current) use of anticoagulants
CPT/HCPCS: 36415; 71046; 80048; 81001; 82040; 82306; 85025; 85610; 85651; 85730; 87641; 93005

== ENCOUNTER → 2018-02-01 | Outpatient (CLI) | payer MEDICARE ==
[~2018-02-01] MED LIST changes: +AMOX500C PO; +ASPI325T8 PO; -CELECOXIB 200 MG CAPSULE. PO PRN; +CEPH500C PO; -FERR-26 PO; +FERR325T14 PO; -HYDROcodone/APAP 7.5/325MG 1 TAB TABLET PO PRN; -HYDROmorphone 2 MG/ML VIAL IV PRN; -IV RINGERS,LACTATED 1000ML 1,000 ML IV SCH; -LIDOCAINE 1% 1 ML SYRINGE. ID PRN; +MELO15TA23 PO; -MORPHINE SULFATE 2 MG/ML DISP.SYRIN. IV PRN; -MORPHINE SULFATE 5 MG, KETOROLAC TROMETHAMINE 30 MG, ROPIVacaine 0.5% PF 60 ML, EPINEPH... INT ART ONE; -ONDANSETRON PF 4 MG/2 ML VIAL. IV PRN; -PROCHLORPERAZINE 10 MG/2 ML VIAL. IV PRN; -SPIR25TA3 PO; +SPIR25TA5 PO; -TRANEXAMIC ACID 1,000 MG in IV NS 50ML -- 1ST BAG INJ ONE; -TRANEXAMIC ACID 1,000 MG in IV NS 50ML -- 2ND BAG INJ ONE; -fentaNYL PF VIAL 100 MCG/2 ML VIAL IV PRN
--- NOTE | 2018-02-01 14:49 | EKG ---
[address] [place] [address] Test Date: 2018-02-01 Test Time: 14:43:43 Pat Name: CLARK UPTON Department: Room: Gender: F [employer] Supervisor: : [id number] Requested By: ISADORA MENDENHALL Order Number: [id number] Reading MD: J Luis Ramírez MD Measurements Intervals [place] Rate: 82 P: 0 [place]: 182 QRS: 9 QRSD: 82 T: 5 QT: 450 QTc: 529 Interpretive Statements SINUS RHYTHM - PROBABLE. BASELINE ARTIFACT, CANNOT RULE OUT AFIB. NON-SPECIFIC ST/T CHANGES Electronically Signed On 02-04-2018 10:00:07 CDT by J Luis Ramírez MD
[2018-02-01 15:22] LABS: BASO # 0.1 x10^3/uL (0.0-0.2); BASO % 1 % (0-3); EOS # 0.1 x10^3/uL (0.0-0.7); EOS % 1 % (0-3); HEMOGLOBIN 13.1 g/dL (12.0-15.5); LYMPH # 2.8 x10^3/uL (1.0-4.8); LYMPH % 29 % (24-48); MEAN CORPUSCULAR HEMOGLOBIN 32 pg (25-35); MEAN CORPUSCULAR HGB CONC 34 g/dL (31-37); MEAN CORPUSCULAR VOLUME 95 fL (79-100); MONO % 10 % (0-9); NEUT # 5.5 x10^3uL (1.8-7.7); NEUT % 58 % (31-73); PLATELET COUNT 254 x10^3/uL (140-400); RED BLOOD COUNT 4.09 x10^6/uL (3.50-5.40); WHITE BLOOD COUNT 9.5 x10^3/uL (4.0-11.0)
[2018-02-01 15:30] LABS: BILIRUBIN,URINE NEGATIVE (NEG); CALCIUM 9.5 mg/dL (8.5-10.1); CLARITY,URINE CLEAR; COLOR,URINE YELLOW; GFR 66.3; NITRITE,URINE NEGATIVE (NEG); PROTEIN,URINE NEGATIVE (NEG-TRACE); UROBILINOGEN,URINE 0.2 mg/dL (0.2 mg/dL)
[2018-02-01 15:34] LABS: PROTHROMBIN TIME PATIENT 13.1 SEC (11.7-14.0)
[2018-02-01 15:47] LABS: BACTERIA,URINE MODERATE /HPF (0-FEW); HYALINE CASTS, URINE MODERATE /HPF; RBC,URINE 0 /HPF (0-2); SQUAMOUS EPITHELIAL CELL,UR MANY /LPF; YEAST,URINE PRESENT /HPF
--- NOTE | 2018-02-01 18:06 | RAD ---
EXAM: PA and lateral views of the chest DATE: 02/01/2018 12:00 AM INDICATION: pre-op for knee replacement COMPARISON: 11/19/2017, 11/06/2016 FINDINGS: The heart is top normal in size. Atherosclerotic calcifications of the tortuous aorta are seen. No focal parenchymal airspace opacity. No pleural effusion or pneumothorax. IMPRESSION: 1. No radiographic evidence for acute cardiopulmonary process. Electronically signed by: Titi Mcneil MD (02/01/2018 6:02 PM) [facility]
== END | disposition home or self-care (01) ==
LOC: LAB 13:56
PROVIDERS: ATTEND Orthopaedic Surgery
DX: Z01.818 Encounter for other preprocedural examination (principal); I70.0 Atherosclerosis of aorta; M17.12 Unilateral primary osteoarthritis, left knee; E78.00 Pure hypercholesterolemia, unspecified; K21.9 Gastro-esophageal reflux disease without esophagitis; Z87.891 Personal history of nicotine dependence; Z79.899 Other long term (current) drug therapy
CPT/HCPCS: 36415; 71046; 80048; 81001; 83036; 85025; 85610; 85651; 85730; 86140; 93005

== ENCOUNTER → 2021-10-24 | Outpatient (CLI) | payer MEDICARE, BC ==
[~2021-10-24] MED LIST changes: -ALEN70TA5 PO; +ALEN70TA71 PO; +AMLO-187 PO; -AMLO10TA2 PO; +LIDOCAINE 1% Multi-Dose 20 ML VIAL. INJ ONE; +LIDOCAINE 2%/EPI 1:100,000 20 ML VIAL. INJ ONE; +MULT-445 PO; -MULT1TAB52 PO
--- NOTE | 2021-10-24 12:03 | RAD ---
EXAM: Stereotactic left breast biopsy; specimen radiograph; post-biopsy clip placement; unilateral po st-biopsy mammogram. HISTORY: 76-year-old female presents for stereotactic guided biopsy of clustered microcalcifications within the left breast demonstrated on a study performed at an outside facility. TECHNIQUE AND FINDINGS: The procedure and its risks and benefits were discussed with the patient. Ris ks discussed included, but were not limited to, pain, infection, bleeding and need for repeat biopsy. The patient provided verbal and written consent. A timeout was performed. The left breast skin was m arked. The patient was placed in a seated position at the stereotactic unit and the left breast was placed i n lateral medial compression. Images were obtained and the calcification of concern were localized us ing stereotaxis. The skin overlying this region was then sterilely prepped and infiltrated with a few cc 1% lidocaine for local anesthesia. Deeper soft tissue anesthesia was administered with epinephrin e in 1% lidocaine. A small skin incision was made and the biopsy device was advanced and appropriate positioning was confirmed with additional images. Subsequently, multiple core biopsy samples were obtained with vacuum assistance. A plain radiograph o f the specimen was obtained, demonstrating inclusion of calcifications of interest. Then, a post-bios py clip was advanced to the site of biopsy using the same guidance technique. A sterile bandage was placed, and the patient was transferred to the mammography suite for craniocaudal and mediolateral ob lique views. The post-biopsy mammogram was interpreted as a workstation. This demonstrates immediate post-biospy c hanges and a biopsy clip approximately 8 mm medial to a few residual calcifications. The patient tole rated the procedure without difficulty and was discharged to home in stable condition with post-biosp y care instructions. IMPRESSION: Successful stereotactic biospy of clustered marked calcifications within the posterior la teral left breast and post-biopsy clip placement. An addendum to this report will be submitted when p athology results are available. Electronically signed by: Minoo Sheehan MD (10/24/2021 12:01 PM) [id number]
--- NOTE | 2021-10-26 17:30 | PATHOLOGY ---
[facility] Accession Number: [id number] . 01 Material submitted: . breast - CALCS IN CASSETTE LEFT BREAST TISSUE . 01 Clinical history: . LEFT BREAST CALCIFICATIONS LEFT STEREOTACTIC BIOPSY CALC OBTAINED: 0915 FORMALIN 0915 . 02 Diagnosis: Breast tissue, left breast calcifications stereotactic biopsies: - Fibroadenomatous change, focal. - Few microcalcifications identified. (JPM:karen; 10/25/2021) QMS 10/25/2021 1413 Local . 02 Comment: Sections of the left breast stereotactic biopsy reveal segments of predominantly fatty breast tissue. There are focal fibroadenomatous changes. There are a few microcalcifications identified predominantly in association with the fibroadenomatous change. There is an occasional microcalcification identified elsewhere within benign breast tissue. There is no atypia or evidence of malignancy. (JPM:karen; 10/25/2021) . 02 Electronically signed: . Samuel Hoffman MD, Pathologist NPI- [id number] . 01 Gross description: . The specimen is received in formalin, labeled "Sindy Sands, left breast". Received within a plastic cassette are multiple needle cores of fibrofatty tissue measuring 2.8 x 2.7 x 0.5 cm in aggregate dimensions. The specimen is submitted entirely in cassettes A1 through A4. The cold ischemic time is less than 1 minute. The total from the fixation time is 10 hours and 35 minutes. (CAA; 10/24/2021) QAC/QAC 10/24/2021 1550 Local . 02 Pathologist provided ICD-10: R92.8 . 02 CPT . 118735 Specimen Comment: A courtesy copy of this report has been sent to [phone], [phone] Specimen Comment: [id number] Specimen Comment: Report sent to / DR SANDHU Performed at: 01 [facility] [address], [place] [id number] MD Trung Soliz MD Phone: [phone] Performed at: 02 [facility] [place] [address] [place], [place] [id number] MD Samuel Hoffman MD Phone: [phone]
== END | disposition home or self-care (01) ==
LOC: MAMMO 08:13
PROVIDERS: ATTEND Family Medicine
DX: R92.1 Mammographic calcification found on diagnostic imaging of breast (principal); R92.8 Other abnormal and inconclusive findings on diagnostic imaging of breast; I10 Essential (primary) hypertension; M19.90 Unspecified osteoarthritis, unspecified site; F41.9 Anxiety disorder, unspecified; Z79.82 Long term (current) use of aspirin; Z79.899 Other long term (current) drug therapy; Z98.890 Other specified postprocedural states
CPT/HCPCS: 19081; 77065; J3490